=== PATIENT | male | born 1970 | race African-American/Black ===

== ENCOUNTER 2018-11-05 01:12 | Emergency (ER) | payer MEDICAID ==
[~2018-11-05] VITALS: Ht 188 cm; Wt 109.0 kg
[2018-11-05] MEDS ORDERED: LISI40TA4 PO (01:26)
[2018-11-05] MEDS ORDERED: NAPR-677 PO (01:26)
[2018-11-05] MEDS ORDERED: TRIA1TAB92 PO (01:26)
[2018-11-05] MEDS ORDERED: ASPI-1159 PO (01:26)
[2018-11-05] MEDS ORDERED: KETOROLAC 30MG/ML VIAL IV NR (01:45)
[2018-11-05 01:47] LABS: BASOPHILS % 0.8 % (0.0-2.0); EOSINOPHILS % 0.9 % (0.0-5.0); HEMATOCRIT. 40.1 % (42.0-52.0); HEMOGLOBIN. 14.4 g/dL (14.0-18.0); LYMPHOCYTES % 23.8 % (20.0-50.0); MEAN CORPUSCULAR HEMOGLOBIN 30.7 pg (28.0-32.0); MEAN CORPUSCULAR VOLUME 85.4 fL (80.0-94.0); MEAN PLATELET VOLUME 7.9 fl (7.4-10.4); MONOCYTES % 5.9 % (2.0-8.0); NEUTROPHILS % 68.6 % (40.0-76.0); PLATELET 215 x1000/uL (130-400); RED CELL DISTRIBUTION WIDTH 13.7 % (11.6-14.6)
[2018-11-05 02:02] LABS: CHLORIDE 106 mEq/L (98-107)
[2018-11-05 04:55] VITALS: BP 126/86
== END 2018-11-05 04:56 | disposition home or self-care (01) ==
LOC: ER 01:39
DX: R07.89 Other chest pain (principal); I10 Essential (primary) hypertension; E13.9 Other specified diabetes mellitus without complications; F17.210 Nicotine dependence, cigarettes, uncomplicated; Z79.82 Long term (current) use of aspirin
CPT/HCPCS: 36415; 71045; 80053; 83880; 84484; 85025; 93005; 96374; 99284; J1885